=== PATIENT | female | born 2000 | race Caucasian/White ===

== ENCOUNTER → 2023-12-18 07:02 | Outpatient (REF) | payer OTHER, SELFPAY | LOC: RAD 07:02 | PROVIDERS: ATTENDING PHYSICIAN Nurse Practitioner | DX: E06.3 Autoimmune thyroiditis (principal) | CPT/HCPCS: 76536 ==

== ENCOUNTER 2024-04-30 08:03 | Emergency (ER) | payer OTHER, SELFPAY ==
[2024-04-30] VITALS (7 sets, daily range): BP systolic 90–108; BP diastolic 53–70; BMI 25.7
[2024-04-30 08:41] LABS: Hematocrit 35.1 % (37.0-47.0); Hemoglobin 12.3 g/dL (12.0-16.0); Mean Corpuscular Hgb 30.2 pg (27.0-31.0); Mean Corpuscular Volume 86.2 fL (81.0-99.0); Mean Platelet Volume 11.2 fL (7.4-10.4); Platelet Count 188 10^3/uL (130-400); Red Blood Cell Count 4.07 10^6/uL (4.20-5.40); Red Cell Dist. Width 14.8 % (11.5-14.5)
--- NOTE | 2024-04-30 09:03 | EDRN ---
the pt is resting in stretcher in the lowest position, side rails up x1, HOB elevated, no s/s of distress, no c/o SOB, no c/o chest pain, RA Sp02 99%, VS WNL, will continue to monitor the pt closely
[2024-04-30 09:12] LABS: ALT (SGPT) 708 U/L (0-35); AST (SGOT) 402 U/L (14-36); Albumin 4.3 g/dl (3.5-5.0); Alkaline Phosphatase 164 U/L (38-126); Blood Urea Nitrogen 11 mg/dl (7-17); Calcium 9.5 mg/dl (8.4-10.2); Carbon Dioxide 25 mmol/L (22-30); Chloride 103 mmol/L (98-107); Estimated Creatinine Clearance 81 ml/min; Glucose 101 mg/dl (70-99); Potassium 4.6 mmol/L (3.5-5.1); Sodium 140 mmol/L (135-145); Total Bilirubin 0.6 mg/dl (0.2-1.3); Total Protein 7.9 g/dl (6.3-8.2); eGFR > 60.00
[2024-04-30 09:15] LABS: Band Neutrophils 4 % (0-3); Segmented Neutrophils 26 % (42-75)
[2024-04-30 09:16] LABS: Atypical Lymphocytes 10 %; Lymphocytes 53 % (20-51); Metamyelocytes 1 % (-); Monocytes 6 % (2-9); Normal RBC Morphology Yes; Platelets Checked Yes; Total Cells Counted 100
--- NOTE | 2024-04-30 09:26 | ED.GENMED ---
History of Present Illness
General
Chief Complaint: Throat Problem
Source: patient
Exam Limitations: none
Time Seen by Provider: 04/30/24 09:05
History of Present Illness
History of Present Illness:
23-year-old otherwise healthy female presents complaining of 4 to 5 days worth of sore throat enlarged tonsils white stuff on her tonsils with fatigue and occasional abdominal pain. She has a history of recurrent strep. She typically gets every
year. She has been on amoxicillin for 4 days without any relief. She denies rashes. No difficulty breathing. No other complaints at this
Phy Exam
Physical Exam
Physical Exam:
General: Well-appearing female no acute respiratory distress
HEENT: NC/aT no trismus or drooling. There is symmetrically enlarged tonsils with diffuse exudate. There is adenopathy noted bilaterally TMs normal
Heart: RRR, no murmurs
Lungs; CTA bilaterally
Abdomen is soft mildly diffusely tender no guarding or rebound
Extremities: No cyanosis
Course
Orders/Labs/Results
Orders:
Orders
04/30/24 08:21
Monotest Urgent
Rapid Strep Group A Urgent
CRIS Source: Throat/Pharynx
Specimen Description:
Date Specimen was Collected: 04/30/24
Time Specimen was Collected: 08:13
Throat Culture, Comprehensive Urgent
CRIS Source: Tonsil
Specimen Description:
Date Specimen was Collected: 04/30/24
Time Specimen was Collected: 08:13
04/30/24 08:22
Complete Blood Count/With Diff Urgent
Comprehensive Metabolic Panel Urgent
Manual Differential Urgent
04/30/24 09:25
0.9% Sodium Chloride 1000 ml [Nss] 1,000 ml IV BOLUS
Dexamethasone Sod Phosphate [Decadron] 10 mg IV NOW STA
Ketorolac [Toradol] 15 mg IV NOW STA
Abnormal Lab Results
04/30/24 04/30/24
08:21 08:22
RBC 4.07 L 10^6/uL
(4.20-5.40)
Hct 35.1 L %
(37.0-47.0)
RDW 14.8 H %
(11.5-14.5)
MPV 11.2 H fL
(7.4-10.4)
Segmented Neutrophils 26 L %
(42-75)
Band Neutrophils 4 H %
(0-3)
Lymphocytes (Manual) 53 H %
(20-51)
Glucose 101 H mg/dl
(70-99)
AST 402 H U/L
(14-36)
ALT 708 H* U/L
(0-35)
Alkaline Phosphatase 164 H U/L
(38-126)
Monoscreen Positive A
(Negative)
04/30/24 08:22
04/30/24 08:22
Vital Signs
Initial and Last Documented VS:
Initial Vital Signs
Temp Pulse Resp Pulse Ox
100.5 F H 106 16 98
04/30/24 08:07 04/30/24 08:07 04/30/24 08:07 04/30/24 08:07
Last Documented Vital Signs
Temp Pulse Resp BP Pulse Ox
98.9 F 96 20 108/70 98
04/30/24 08:54 04/30/24 10:04 04/30/24 10:04 04/30/24 10:04 04/30/24 10:30
MDM/Problems Addressed
Differential Diagnosis Includes:
Sore throat. Question viral illness versus strep versus mono. No signs of peritonsillar abscess. Respiratory distress.
Rapid strep mono and labs ordered through triage. For supportive care, fluids Toradol Decadron ordered
No indication for any drainage of abscess at this time
*Critical Care Note
Total Time (30-74mins, 75-104mins- exclusive of procedures): Not Applicable
Update Note
Update Note:
Monotest is positive. Liver functions are elevated. Patient feeling better after hydration Toradol and Decadron. Discussed elevated liver function test with GI. No need for admission secondary to LFT elevation. Recommended hydration at home and
recheck of blood work this week with family doctor. Stable for discharge
ED Attending Note
-
Portions of this chart may have been created with voice recognition software.� Occasional wrong word or��sound alike� substitutions may have occurred due to the inherent limitations of voice recognition software.
Discharge Plan
Departure
Patient Disposition: Home (Routine Discharge)
Date of Disposition: 04/30/24
Time of Disposition: 11:23
Patient with high blood pressure during this ER visit?: No
Discharge Problem:
Mononucleosis
Instructions: Mononucleosis (DC)
Prescriptions:
New
prednisone 20 mg tablet
40 mg PO DAILY 5 Days Qty: 10 0RF
Referrals:
Lillian Garcia MD [Family Provider] -
Activity Restrictions/Additional Instructions:
Rest. Drink plenty of fluids. Use prednisone as directed. Please follow-up with your family doctor for recheck of blood work this week. Return if needed
Interventions
Interventions:
*Risk Screen - Suicide Last Done: 04/30/24 08:07
*General Assessment Last Done: 04/30/24 08:54
*Neglect/Abuse Screening Last Done: 04/30/24 08:07
ED- Fall Risk Assessment Last Done: 04/30/24 08:54
*ED COVID-19 Vaccine History Last Done: 04/30/24 08:54
ED-EENT Assessment Last Done: 04/30/24 08:54
ED- Pulmonary Assessment Last Done: 04/30/24 08:54
Discharge Date and Time
Print Language: BENGALI
[2024-04-30] MEDS: TORADOL 15 MG IV (09:45)
[2024-04-30] MEDS: NSS 1000 IV (09:45)
[2024-04-30] MEDS: DECADRON 10 MG IV (09:45)
[2024-04-30 10:15] LABS: Monotest Positive (Negative)
--- NOTE | 2024-04-30 10:24 | EDRN ---
the pt is resting in stretcher in the lowest position, side rails up x1, call romero within reach, HOB elevated, no s/s of distress, no c/o SOB, no c/o chest pain, RA Sp02 97%, the pts mother is now currently at the pts bedside, will continue to
monitor the pt closely
== END 2024-04-30 11:46 | disposition home or self-care (01) ==
LOC: EMR 08:03
PROVIDERS: EMERGENCY PHYSICIAN Student in an Organized Health Care Education/Training Program; FAMILY PHYSICIAN Hospitalist
DX: B27.90 Infectious mononucleosis, unspecified without complication (principal)
CPT/HCPCS: 99283; 96374; 96375; 96361; 80053; 85025; 86308; 87070; 87880